=== PATIENT | female | born 1960 | race Hispanic/Latino ===

== ENCOUNTER → 2017-09-15 | Day surgery (SDC) | payer MEDICARE ==
[2017-09-15] VITALS (12 sets, daily range): BP systolic 151–171; BP diastolic 65–82
[~2017-09-15] VITALS: Ht 152.4 cm; Wt 59.0 kg
[~2017-09-15] MED LIST: ACETAMINOPHEN325 M1 PO; ALENDRONATE SOD70 MG; ALENDRONATE SOD70 MG PEG; ARANESP40 MCG/1 M IV; ASPIRIN81 MG PO; ATORVASTATIN CA10 MG PO; BENZOCAINE 20% SPR 60 ML CAN ONE; BUSPIRONE HCL5 MG PO; CALCIUM ACETAT667 M1 PO; CEFAZOLIN1 GM/50 ML IVP; CLONIDINE HCL0.2 MG; COLACE100 MG PO; DOCUSATE SODIU100 MG PO; DRISDOL50000 UNIT PEG; GABAPENTIN400 MG PO; ISOSORBIDE MONO20 MG PO; KEFLEX250 MG PO; LEVEMIR100 UNIT/1 SQ; LEVOTHYROXINE50 MCG PO; LIDOCAINE HCL 2% LOCAL INJ 5 ML SDV VIAL INJ ONE; LISINOPRIL10 MG PO; MECLIZINE HCL12.5 MG PO; METOPROLOL SUCC50 MG PO; NEXIUM20 MG; NIFEDIPINE ER60 M1 PO; NOVOLOG100 UNIT/1 SQ; PANTOPRAZOLE SO40 MG PO; PAXIL20 MG; PLAVIX75 MG PO; POLYETHYLENE GL17 GM PO; PROPOFOL IV EMULSION 10 MG/ML 20 ML VIAL ONE; RENVELA0.8 GM; RENVELA0.8 GM PO; RISPERIDONE0.5 MG PO; SENSIPAR30 MG PO; SIMVASTATIN20 MG PO; SODIUM CHLORIDE 0.9% 1000ML 1,000 ML ONE; VELTASSA PO; [UNRECOGNIZED DRUG - CODE] PO
== END | disposition home or self-care (01) ==
LOC: OR 13:52
PROVIDERS: ATTEND Internal Medicine
DX: R78.81 Bacteremia (principal); B95.8 Unspecified staphylococcus as the cause of diseases classified elsewhere; E11.22 Type 2 diabetes mellitus with diabetic chronic kidney disease; I12.0 Hypertensive chronic kidney disease with stage 5 chronic kidney disease or end stage renal disease; N18.6 End stage renal disease; I11.9 Hypertensive heart disease without heart failure; Z86.73 Personal history of transient ischemic attack (TIA), and cerebral infarction without residual deficits
CPT/HCPCS: 93312; 93320; 93325; J2001; J7030; 93307

== ENCOUNTER 2021-05-29 14:37 | Inpatient (IN) | payer MEDICARE ==
[~2021-05-29] VITALS: Ht 157.5 cm; Wt 59.0 kg
[~2021-05-29 14:37] MED LIST changes: -BENZOCAINE 20% SPR 60 ML CAN ONE; -LIDOCAINE HCL 2% LOCAL INJ 5 ML SDV VIAL INJ ONE; -PROPOFOL IV EMULSION 10 MG/ML 20 ML VIAL ONE; -SODIUM CHLORIDE 0.9% 1000ML 1,000 ML ONE
[2021-05-29 15:19] LABS: BASOPHILS % 0.2 % (0.0-1.0); HEMATOCRIT 33.7 % (34.2-44.1); HEMOGLOBIN 10.2 g/dL (12.0-16.0); LYMPHOCYTES # (AUTO) 0.5 (1.0-3.2); LYMPHOCYTES % 3.5 % (18.0-39.1); MEAN CORPUSCULAR HEMOGLOBIN 29.7 pg (28-32); MEAN CORPUSCULAR HGB CONC 30.3 g/dL (31-35); MEAN CORPUSCULAR VOLUME 98.3 fL (81-99); MONOCYTES # (AUTO) 0.5 (0.2-0.8); MONOCYTES % 3.7 % (4.4-11.3); NEUTROPHILS # (AUTO) 12.6 (2.1-6.9); NEUTROPHILS % 91.9 % (38.7-80.0); PLATELET COUNT 93 x10e3/uL (140-360); RED BLOOD COUNT 3.43 x10e6/uL (3.6-5.1)
[2021-05-29 15:36] LABS: INR 1.47
[2021-05-29 15:37] LABS: PARTIAL THROMBOPLASTIN TIME 26.3 seconds (23.8-35.5)
[2021-05-29 15:45] LABS: ALBUMIN 2.8 g/dL (3.5-5.0); ALBUMIN/GLOBULIN RATIO 0.6 (0.8-2.0); ANION GAP 23.3 mmol/L (8-16); CREATININE, SERUM 5.95 mg/dL (0.57-1.11); POTASSIUM 4.3 mmol/L (3.5-5.1)
[2021-05-29 15:52] LABS: CREATINE KINASE MB 0.9 ng/mL (0-5.0)
[2021-05-29] MEDS ORDERED: INSULIN REGULAR, HUMAN 100 UNIT/1 ML SQ ONE (16:00)
[2021-05-29 18:05] LABS: LYMPHOCYTES % (MANUAL) 1 % (19-48); METAMYELOCYTES % (MANUAL) 2 % (0-0); NEUTROPHILS % (MANUAL) 97 % (40-74)
[2021-05-29] MEDS ORDERED: PIPERACILLIN/TAZOBACTAM 4.5 GM in SODIUM CHLORIDE 0.9% 100 ML IV ONE (18:30)
[2021-05-29] MEDS ORDERED: ACETAMINOPHEN 325 MG TAB PO PRN (18:30)
[2021-05-30] VITALS (8 sets, daily range): BP systolic 117–138; BP diastolic 50–59
[2021-05-30] MEDS ORDERED: HYDRALAZINE HCL 20 MG/ML VIAL IV PRN (01:45)
[2021-05-30] MEDS ORDERED: DOCUSATE SODIUM 100 MG CAP PO PRN (01:45)
[2021-05-30] MEDS ORDERED: DEXTROSE 50% SYRINGE 50 ML IV PRN (01:45)
[2021-05-30] MEDS ORDERED: ONDANSETRON HCL INJ 2MG/ML 2ML 2 MG/ML VIAL IV PRN (01:45)
[2021-05-30] MEDS ORDERED: ACETAMINOPHEN 325 MG TAB PO PRN (01:45)
[2021-05-30 01:53] LABS: % IRON SATURATION 6 % (15-50); IRON 11 ug/dL (50-170); TOTAL IRON BINDING CAPACITY 189 ug/dL (261-478); TRANSFERRIN 135 mg/dL (180-382)
[2021-05-30] MEDS ORDERED: Vancomycin IV 1 GM VIAL ONE (03:23)
[2021-05-30] MEDS ORDERED: SODIUM CHLORIDE 0.9% 250ML 250 ML ONE ×2 (03:23→21:27)
[2021-05-30] MEDS: LEVOTHYROXINE SODIUM 50 MCG TAB PO SCH (07:30)
[2021-05-30] MEDS: PANTOPRAZOLE SOD 40 MG TABEC PO SCH (07:30)
[2021-05-30] MEDS: INSULIN REGULAR, HUMAN 100 UNIT/1 ML SQ SCH ×4 (07:30→21:00)
[2021-05-30] MEDS: SEVELAMER CARBONATE 800 MG TAB PO SCH ×3 (08:00→17:00)
[2021-05-30] MEDS: DOCUSATE SODIUM 100 MG CAP PO SCH ×2 (09:00→17:00)
[2021-05-30] MEDS: CLOPIDOGREL BISULFATE 75 MG TAB PO SCH (09:00)
[2021-05-30] MEDS: CALCIUM ACETATE 667 MG GELCAP PO SCH (09:00)
[2021-05-30] MEDS: ASPIRIN 81 MG CHEW TAB PO SCH (09:00)
[2021-05-30] MEDS: CINACALCET 30 MG TAB PO SCH (09:00)
[2021-05-30] MEDS: SODIUM BICARBONATE 650 MG TAB PO SCH ×2 (09:00→17:00)
[2021-05-30] MEDS: GABAPENTIN 400 MG CAP PO SCH ×3 (09:00→21:21)
[2021-05-30 09:05] LABS: ALBUMIN 2.4 g/dL (3.5-5.0); ALBUMIN/GLOBULIN RATIO 0.5 (0.8-2.0); ANION GAP 21.9 mmol/L (8-16); CALCIUM 7.8 mg/dL (8.4-10.2); CREATININE, SERUM 7.13 mg/dL (0.57-1.11); POTASSIUM 3.9 mmol/L (3.5-5.1)
[2021-05-30 09:11] LABS: INR 1.41; PARTIAL THROMBOPLASTIN TIME 25.1 seconds (23.8-35.5); PROTHROMBIN TIME 18.4 seconds (11.9-14.5)
[2021-05-30 09:55] LABS: BASOPHILS # (AUTO) 0.1 (0.0-0.1); BASOPHILS % 0.5 % (0.0-1.0); EOSINOPHILS # (AUTO) 0.1 (0.0-0.4); EOSINOPHILS % 0.5 % (0.0-6.0); HEMATOCRIT 35.6 % (34.2-44.1); HEMOGLOBIN 11.2 g/dL (12.0-16.0); LYMPHOCYTES # (AUTO) 0.5 (1.0-3.2); LYMPHOCYTES % 3.9 % (18.0-39.1); MEAN CORPUSCULAR HEMOGLOBIN 29.9 pg (28-32); MEAN CORPUSCULAR HGB CONC 31.5 g/dL (31-35); MONOCYTES # (AUTO) 0.7 (0.2-0.8); NEUTROPHILS # (AUTO) 11.6 (2.1-6.9); NEUTROPHILS % 89.6 % (38.7-80.0); RED BLOOD COUNT 3.74 x10e6/uL (3.6-5.1); RED CELL DISTRIBUTION WIDTH 15.9 % (11.7-14.4)
[2021-05-30 10:03] LABS: MEAN CORPUSCULAR VOLUME 95.2 fL (81-99); PLATELET COUNT 85 x10e3/uL (140-360)
[2021-05-30] MEDS ORDERED: Morphine 4mg Syringe 4 MG/ML INJ IV ONE (12:30)
[2021-05-30] MEDS: PIPERACILLIN/TAZOBACTAM 2.25 GM in SODIUM CHLORIDE 0.9% 50ML 50 ML IV SCH ×2 (14:20→21:21)
[2021-05-30] MEDS ORDERED: Vancomycin IV 1 GM in SODIUM CHLORIDE 0.9% 250ML 250 ML IV SCH (17:00)
[2021-05-30] MEDS: ATORVASTATIN 10 MG TAB PO SCH (21:21)
[2021-05-31] VITALS (8 sets, daily range): BP systolic 100–134; BP diastolic 44–62
[2021-05-31 01:15] LABS: ALBUMIN 2.4 g/dL (3.5-5.0); BILIRUBIN,DIRECT 0.5 mg/dL (0.0-0.5)
[2021-05-31 01:34] LABS: BASOPHILS % 0.2 % (0.0-1.0); EOSINOPHILS % 0.3 % (0.0-6.0); HEMATOCRIT 33.9 % (34.2-44.1); HEMOGLOBIN 10.4 g/dL (12.0-16.0); LYMPHOCYTES # (AUTO) 0.5 (1.0-3.2); LYMPHOCYTES % 4.2 % (18.0-39.1); MEAN CORPUSCULAR HEMOGLOBIN 29.4 pg (28-32); MEAN CORPUSCULAR HGB CONC 30.7 g/dL (31-35); MEAN CORPUSCULAR VOLUME 95.8 fL (81-99); MONOCYTES # (AUTO) 0.6 (0.2-0.8); MONOCYTES % 4.9 % (4.4-11.3); NEUTROPHILS # (AUTO) 10.8 (2.1-6.9); NEUTROPHILS % 89.9 % (38.7-80.0); PLATELET COUNT 77 x10e3/uL (140-360); RED BLOOD COUNT 3.54 x10e6/uL (3.6-5.1); RED CELL DISTRIBUTION WIDTH 16.2 % (11.7-14.4)
[2021-05-31 05:32] LABS: BASOPHILS % 0.4 % (0.0-1.0); EOSINOPHILS % 0.3 % (0.0-6.0); HEMATOCRIT 36.7 % (34.2-44.1); HEMOGLOBIN 11.4 g/dL (12.0-16.0); LYMPHOCYTES # (AUTO) 0.5 (1.0-3.2); LYMPHOCYTES % 4.2 % (18.0-39.1); MEAN CORPUSCULAR HEMOGLOBIN 29.9 pg (28-32); MEAN CORPUSCULAR HGB CONC 31.1 g/dL (31-35); MEAN CORPUSCULAR VOLUME 96.3 fL (81-99); MONOCYTES # (AUTO) 0.5 (0.2-0.8); MONOCYTES % 4.8 % (4.4-11.3); NEUTROPHILS # (AUTO) 9.8 (2.1-6.9); NEUTROPHILS % 89.7 % (38.7-80.0); PLATELET COUNT 84 x10e3/uL (140-360); RED BLOOD COUNT 3.81 x10e6/uL (3.6-5.1); RED CELL DISTRIBUTION WIDTH 16.3 % (11.7-14.4)
[2021-05-31] MEDS: LEVOTHYROXINE SODIUM 50 MCG TAB PO SCH (05:58)
[2021-05-31] MEDS: PANTOPRAZOLE SOD 40 MG TABEC PO SCH (05:58)
[2021-05-31 06:04] LABS: ALBUMIN 2.2 g/dL (3.5-5.0); ALBUMIN/GLOBULIN RATIO 0.5 (0.8-2.0); ANION GAP 18.7 mmol/L (8-16); CALCIUM 7.9 mg/dL (8.4-10.2); CREATININE, SERUM 8.08 mg/dL (0.57-1.11); MAGNESIUM 2.2 MG/DL (1.3-2.1); POTASSIUM 3.7 mmol/L (3.5-5.1)
[2021-05-31] MEDS: INSULIN REGULAR, HUMAN 100 UNIT/1 ML SQ SCH ×5 (07:30→21:00)
[2021-05-31] MEDS: SEVELAMER CARBONATE 800 MG TAB PO SCH ×3 (08:00→17:00)
[2021-05-31] MEDS ORDERED: SODIUM CHLORIDE 0.9% 1000ML 1,000 ML ONE (08:48)
[2021-05-31] MEDS: ASPIRIN 81 MG CHEW TAB PO SCH (09:00)
[2021-05-31] MEDS: SODIUM BICARBONATE 650 MG TAB PO SCH ×2 (09:00→17:00)
[2021-05-31] MEDS: CLOPIDOGREL BISULFATE 75 MG TAB PO SCH (09:00)
[2021-05-31] MEDS: GABAPENTIN 400 MG CAP PO SCH (09:00)
[2021-05-31] MEDS: CALCIUM ACETATE 667 MG GELCAP PO SCH (09:00)
[2021-05-31] MEDS: CINACALCET 30 MG TAB PO SCH (09:00)
[2021-05-31] MEDS: DOCUSATE SODIUM 100 MG CAP PO SCH ×2 (09:00→17:00)
[2021-05-31] MEDS: PIPERACILLIN/TAZOBACTAM 2.25 GM in SODIUM CHLORIDE 0.9% 50ML 50 ML IV SCH ×2 (10:57→23:34)
[2021-05-31] MEDS: IRON SUCROSE 100 MG in SODIUM CHLORIDE 0.9% 100 ML 100 ML IV SCH (17:40)
[2021-05-31] MEDS ORDERED: LIDOCAINE HCL 1% LOCAL INJ 20 ML VIAL ONE (18:30)
[2021-05-31] MEDS ORDERED: SODIUM CHLORIDE 0.9% 250ML 250 ML ONE (19:06)
[2021-05-31] MEDS ORDERED: SODIUM CHLORIDE 0.9% 1000ML 2,000 ML ONE (20:15)
[2021-05-31] MEDS: ATORVASTATIN 10 MG TAB PO SCH (21:00)
[2021-05-31] MEDS: HEPARIN SOD (PORCINE) 5,000 UNIT/ML VIAL SC SCH (23:34)
[2021-06-01] VITALS (8 sets, daily range): BP systolic 101–137; BP diastolic 54–91
[2021-06-01 05:50] LABS: BASOPHILS % 0.5 % (0.0-1.0); EOSINOPHILS # (AUTO) 0.1 (0.0-0.4); EOSINOPHILS % 0.7 % (0.0-6.0); HEMATOCRIT 33.5 % (34.2-44.1); LYMPHOCYTES # (AUTO) 0.7 (1.0-3.2); LYMPHOCYTES % 7.5 % (18.0-39.1); MEAN CORPUSCULAR HEMOGLOBIN 28.8 pg (28-32); MEAN CORPUSCULAR HGB CONC 29.9 g/dL (31-35); MEAN CORPUSCULAR VOLUME 96.5 fL (81-99); MONOCYTES # (AUTO) 0.7 (0.2-0.8); MONOCYTES % 7.5 % (4.4-11.3); NEUTROPHILS # (AUTO) 7.4 (2.1-6.9); NEUTROPHILS % 82.9 % (38.7-80.0); PLATELET COUNT 84 x10e3/uL (140-360); RED BLOOD COUNT 3.47 x10e6/uL (3.6-5.1); RED CELL DISTRIBUTION WIDTH 16.4 % (11.7-14.4)
[2021-06-01 06:09] LABS: ALBUMIN 2.2 g/dL (3.5-5.0); ALBUMIN/GLOBULIN RATIO 0.5 (0.8-2.0); ANION GAP 22.7 mmol/L (8-16); CALCIUM 8.5 mg/dL (8.4-10.2); CREATININE, SERUM 5.29 mg/dL (0.57-1.11); MAGNESIUM 2.2 MG/DL (1.3-2.1); POTASSIUM 3.7 mmol/L (3.5-5.1)
[2021-06-01] MEDS: LEVOTHYROXINE SODIUM 50 MCG TAB PO SCH (08:30)
[2021-06-01] MEDS: PANTOPRAZOLE SOD 40 MG TABEC PO SCH (08:30)
[2021-06-01] MEDS: INSULIN REGULAR, HUMAN 100 UNIT/1 ML SQ SCH ×4 (08:30→21:24)
[2021-06-01] MEDS: SEVELAMER CARBONATE 800 MG TAB PO SCH ×3 (09:00→17:00)
[2021-06-01] MEDS: DOCUSATE SODIUM 100 MG CAP PO SCH ×2 (09:08→17:00)
[2021-06-01] MEDS: SODIUM BICARBONATE 650 MG TAB PO SCH ×2 (09:08→17:00)
[2021-06-01] MEDS: CLOPIDOGREL BISULFATE 75 MG TAB PO SCH (09:08)
[2021-06-01] MEDS: ASPIRIN 81 MG CHEW TAB PO SCH (09:08)
[2021-06-01] MEDS: PIPERACILLIN/TAZOBACTAM 2.25 GM in SODIUM CHLORIDE 0.9% 50ML 50 ML IV SCH ×2 (09:09→21:24)
[2021-06-01] MEDS: CINACALCET 30 MG TAB PO SCH (09:09)
[2021-06-01] MEDS: IRON SUCROSE 100 MG in SODIUM CHLORIDE 0.9% 100 ML 100 ML IV SCH (09:11)
[2021-06-01] MEDS: HEPARIN SOD (PORCINE) 5,000 UNIT/ML VIAL SC SCH ×2 (09:30→21:24)
[2021-06-01] MEDS: ATORVASTATIN 10 MG TAB PO SCH (21:36)
[2021-06-02] VITALS (8 sets, daily range): BP systolic 122–146; BP diastolic 46–96
[2021-06-02] MEDS: INSULIN REGULAR, HUMAN 100 UNIT/1 ML SQ SCH ×4 (08:15→21:18)
[2021-06-02] MEDS: LEVOTHYROXINE SODIUM 50 MCG TAB PO SCH (08:30)
[2021-06-02] MEDS: PANTOPRAZOLE SOD 40 MG TABEC PO SCH (08:30)
[2021-06-02] MEDS: SEVELAMER CARBONATE 800 MG TAB PO SCH ×3 (08:53→17:14)
[2021-06-02] MEDS ORDERED: ERGOCALCIFEROL 50,000 UNIT CAP PO SCH (09:00)
[2021-06-02] MEDS: DOCUSATE SODIUM 100 MG CAP PO SCH (09:00)
[2021-06-02] MEDS: HEPARIN SOD (PORCINE) 5,000 UNIT/ML VIAL SC SCH ×2 (09:15→21:00)
[2021-06-02] MEDS: PIPERACILLIN/TAZOBACTAM 2.25 GM in SODIUM CHLORIDE 0.9% 50ML 50 ML IV SCH (09:32)
[2021-06-02] MEDS: ASPIRIN 81 MG CHEW TAB PO SCH (09:32)
[2021-06-02] MEDS: CINACALCET 30 MG TAB PO SCH (09:33)
[2021-06-02] MEDS: SODIUM BICARBONATE 650 MG TAB PO SCH ×2 (09:33→17:14)
[2021-06-02] MEDS: CLOPIDOGREL BISULFATE 75 MG TAB PO SCH (09:34)
[2021-06-02] MEDS: IRON SUCROSE 100 MG in SODIUM CHLORIDE 0.9% 100 ML 100 ML IV SCH (09:43)
[2021-06-02] MEDS: PIPERACILLIN/TAZOBACTAM 3.375 GM in SODIUM CHLORIDE 0.9% 50ML 50 ML IV SCH (15:07)
[2021-06-02] MEDS: ATORVASTATIN 10 MG TAB PO SCH (21:00)
[2021-06-03] VITALS: BP 123/69
[2021-06-03 04:00] VITALS: BP 161/84
[2021-06-03] MEDS: PIPERACILLIN/TAZOBACTAM 3.375 GM in SODIUM CHLORIDE 0.9% 50ML 50 ML IV SCH ×2 (05:04→17:28)
[2021-06-03 05:39] LABS: BASOPHILS % 0.6 % (0.0-1.0); EOSINOPHILS # (AUTO) 0.2 (0.0-0.4); EOSINOPHILS % 3.1 % (0.0-6.0); HEMATOCRIT 33.7 % (34.2-44.1); HEMOGLOBIN 10.1 g/dL (12.0-16.0); LYMPHOCYTES # (AUTO) 1.2 (1.0-3.2); LYMPHOCYTES % 18.5 % (18.0-39.1); MEAN CORPUSCULAR HEMOGLOBIN 28.9 pg (28-32); MEAN CORPUSCULAR VOLUME 96.3 fL (81-99); MONOCYTES # (AUTO) 0.6 (0.2-0.8); NEUTROPHILS # (AUTO) 4.2 (2.1-6.9); NEUTROPHILS % 66.5 % (38.7-80.0); PLATELET COUNT 126 x10e3/uL (140-360); RED CELL DISTRIBUTION WIDTH 16.5 % (11.7-14.4)
[2021-06-03 06:20] LABS: ALBUMIN/GLOBULIN RATIO 0.4 (0.8-2.0); ANION GAP 21.6 mmol/L (8-16); CALCIUM 8.1 mg/dL (8.4-10.2); CREATININE, SERUM 7.53 mg/dL (0.57-1.11); POTASSIUM 3.6 mmol/L (3.5-5.1)
[2021-06-03] MEDS: LEVOTHYROXINE SODIUM 50 MCG TAB PO SCH (07:30)
[2021-06-03] MEDS: PANTOPRAZOLE SOD 40 MG TABEC PO SCH (07:30)
[2021-06-03] MEDS ORDERED: SODIUM CHLORIDE 0.9% 1000ML 1,000 ML ONE (07:48)
[2021-06-03] MEDS: SEVELAMER CARBONATE 800 MG TAB PO SCH ×3 (08:00→17:00)
[2021-06-03] MEDS: INSULIN REGULAR, HUMAN 100 UNIT/1 ML SQ SCH ×4 (08:30→21:00)
[2021-06-03] MEDS: HEPARIN SOD (PORCINE) 5,000 UNIT/ML VIAL SC SCH ×2 (09:00→21:00)
[2021-06-03] MEDS: SODIUM BICARBONATE 650 MG TAB PO SCH ×2 (09:00→17:00)
[2021-06-03] MEDS: CINACALCET 30 MG TAB PO SCH (09:00)
[2021-06-03] MEDS: ASPIRIN 81 MG CHEW TAB PO SCH (09:00)
[2021-06-03] MEDS: IRON SUCROSE 100 MG in SODIUM CHLORIDE 0.9% 100 ML 100 ML IV SCH (09:00)
[2021-06-03] MEDS ORDERED: SODIUM CHLORIDE 0.9% 1000ML 2,000 ML IV PRN (10:00)
[2021-06-03] MEDS ORDERED: HEPARIN SOD (PORCINE) 1000 UNIT/ML SDV IV PRN (10:00)
[2021-06-03 15:15] VITALS: BP 149/67
[2021-06-03] MEDS ORDERED: Vancomycin IV 1 GM in SODIUM CHLORIDE 0.9% 250ML 250 ML IV SCH (17:00)
[2021-06-03 20:00] VITALS: BP 143/58
[2021-06-03] MEDS: ATORVASTATIN 10 MG TAB PO SCH (23:15)
[2021-06-04] VITALS (11 sets, daily range): BP systolic 94–166; BP diastolic 50–75
[2021-06-04] MEDS: PIPERACILLIN/TAZOBACTAM 3.375 GM in SODIUM CHLORIDE 0.9% 50ML 50 ML IV SCH ×2 (06:16→17:47)
[2021-06-04] MEDS: INSULIN REGULAR, HUMAN 100 UNIT/1 ML SQ SCH ×4 (07:30→21:30)
[2021-06-04] MEDS: LEVOTHYROXINE SODIUM 50 MCG TAB PO SCH (07:30)
[2021-06-04] MEDS: PANTOPRAZOLE SOD 40 MG TABEC PO SCH (07:30)
[2021-06-04] MEDS: SEVELAMER CARBONATE 800 MG TAB PO SCH ×3 (08:00→17:42)
[2021-06-04] MEDS: HEPARIN SOD (PORCINE) 5,000 UNIT/ML VIAL SC SCH ×2 (09:00→21:30)
[2021-06-04] MEDS: SODIUM BICARBONATE 650 MG TAB PO SCH ×2 (09:00→17:42)
[2021-06-04] MEDS: CINACALCET 30 MG TAB PO SCH (09:00)
[2021-06-04] MEDS: ASPIRIN 81 MG CHEW TAB PO SCH (09:00)
[2021-06-04] MEDS: IRON SUCROSE 100 MG in SODIUM CHLORIDE 0.9% 100 ML 100 ML IV SCH (09:11)
[2021-06-04] MEDS ORDERED: SODIUM CHLORIDE 0.9% 1000ML 1,000 ML ONE (09:59)
[2021-06-04] MEDS ORDERED: BENZOCAINE 20% SPR 60 ML CAN ONE (09:59)
[2021-06-04] MEDS ORDERED: FENTANYL CITRATE/PF 100MCG/2 ML INJ ONE (12:37)
[2021-06-04] MEDS ORDERED: MIDAZOLAM HCL 2 MG/2 ML VIAL ONE (12:37)
[2021-06-04] MEDS ORDERED: PROPOFOL IV EMULSION 10 MG/ML 20 ML VIAL ONE (19:35)
[2021-06-04] MEDS ORDERED: LIDOCAINE HCL 2% LOCAL INJ 5 ML SDV VIAL INJ ONE (19:35)
[2021-06-04] MEDS ORDERED: POVIDONE IODINE 0.05% 0.05 % ML PO ONE (19:35)
[2021-06-04] MEDS: ATORVASTATIN 10 MG TAB PO SCH (21:30)
[2021-06-05] VITALS (7 sets, daily range): BP systolic 133–167; BP diastolic 50–67
[2021-06-05] MEDS: PIPERACILLIN/TAZOBACTAM 3.375 GM in SODIUM CHLORIDE 0.9% 50ML 50 ML IV SCH ×2 (05:30→18:00)
[2021-06-05 06:29] LABS: CHOL/HDL RATIO 5.4 (3.0-3.6)
[2021-06-05] MEDS: PANTOPRAZOLE SOD 40 MG TABEC PO SCH (07:30)
[2021-06-05] MEDS: LEVOTHYROXINE SODIUM 50 MCG TAB PO SCH (07:30)
[2021-06-05] MEDS: INSULIN REGULAR, HUMAN 100 UNIT/1 ML SQ SCH ×4 (07:30→20:30)
[2021-06-05] MEDS: SEVELAMER CARBONATE 800 MG TAB PO SCH ×3 (08:00→17:17)
[2021-06-05] MEDS: CINACALCET 30 MG TAB PO SCH (08:29)
[2021-06-05] MEDS: ASPIRIN 81 MG CHEW TAB PO SCH (08:29)
[2021-06-05] MEDS: SODIUM BICARBONATE 650 MG TAB PO SCH ×2 (08:29→17:17)
[2021-06-05] MEDS: HEPARIN SOD (PORCINE) 5,000 UNIT/ML VIAL SC SCH (09:00)
[2021-06-05] MEDS: IRON SUCROSE 100 MG in SODIUM CHLORIDE 0.9% 100 ML 100 ML IV SCH (11:57)
[2021-06-05] MEDS ORDERED: SODIUM CHLORIDE 0.9% 250ML 250 ML ONE (14:01)
[2021-06-05] MEDS ORDERED: LIDOCAINE HCL 1% LOCAL INJ 20 ML VIAL ONE (14:01)
[2021-06-05] MEDS ORDERED: MIDAZOLAM HCL 2 MG/2 ML VIAL ONE (14:28)
[2021-06-05] MEDS ORDERED: FENTANYL CITRATE/PF 100MCG/2 ML INJ ONE (14:28)
[2021-06-05] MEDS ORDERED: HEPARIN SOD (PORCINE) 1000 UNIT/ML SDV ONE (14:34)
[2021-06-05] MEDS ORDERED: SODIUM THIOSULFATE 25 GM in SODIUM CHLORIDE 0.9% 100 ML 100 ML IV SCH (15:00)
[2021-06-05] MEDS ORDERED: COLACE100 MG PO (18:04)
[2021-06-05] MEDS ORDERED: TOPROL XL25 MG PO (18:04)
[2021-06-05] MEDS ORDERED: SODIUM BICARBO650 MG PO (18:04)
[2021-06-06] MEDS ORDERED: METOPROLOL SUCCINATE 25 MG TAB XL PO SCH (09:00)
== END 2021-06-05 21:15 | disposition home or self-care (01) | DRG 871 ==
LOC: ER 14:49 → ERHOLD 22:37 → IMCU 05-30 07:30 → MED/SURG 05-30 18:01
PROVIDERS: ADMIT Internal Medicine; ATTEND Internal Medicine
PROC: 5A1D70Z Performance of Urinary Filtration, Intermittent, Less than 6 Hours Per Day (ICD-10-PCS; principal; 2021-05-31)
PROC: 02HV33Z Insertion of Infusion Device into Superior Vena Cava, Percutaneous Approach (ICD-10-PCS; 2021-05-31)
PROC: 0JH63XZ Insertion of Tunneled Vascular Access Device into Chest Subcutaneous Tissue and Fascia, Percutaneous Approach (ICD-10-PCS; 2021-06-05)
PROC: 02HV33Z Insertion of Infusion Device into Superior Vena Cava, Percutaneous Approach (ICD-10-PCS; 2021-06-05)
DX: A41.01 Sepsis due to Methicillin susceptible Staphylococcus aureus (principal); N18.6 End stage renal disease; D68.9 Coagulation defect, unspecified; T82.590A Other mechanical complication of surgically created arteriovenous fistula, initial encounter; E87.2 Acidosis; I13.2 Hypertensive heart and chronic kidney disease with heart failure and with stage 5 chronic kidney disease, or end stage renal disease; I50.22 Chronic systolic (congestive) heart failure; E11.65 Type 2 diabetes mellitus with hyperglycemia; F41.9 Anxiety disorder, unspecified; F32.A Depression, unspecified; E11.22 Type 2 diabetes mellitus with diabetic chronic kidney disease; E11.40 Type 2 diabetes mellitus with diabetic neuropathy, unspecified; E11.319 Type 2 diabetes mellitus with unspecified diabetic retinopathy without macular edema; Z79.899 Other long term (current) drug therapy; K76.9 Liver disease, unspecified; E21.3 Hyperparathyroidism, unspecified; E11.51 Type 2 diabetes mellitus with diabetic peripheral angiopathy without gangrene; E88.09 Other disorders of plasma-protein metabolism, not elsewhere classified; E78.5 Hyperlipidemia, unspecified; Z99.2 Dependence on renal dialysis; Z86.73 Personal history of transient ischemic attack (TIA), and cerebral infarction without residual deficits; R19.7 Diarrhea, unspecified; G89.29 Other chronic pain; D50.9 Iron deficiency anemia, unspecified; Z20.822 Contact with and (suspected) exposure to COVID-19; E87.5 Hyperkalemia
CPT/HCPCS: 36415; 36556; 36558; 71045; 74150; 74181; 74470; 76705; 76937; 78227; 80053; 80061; 80076; 82140; 82550; 82553; 82607; 82746; 82948; 83540; 83605; 83735; 83880; 84466; 84484; 85025; 85045; 85610; 85730; 86705; 86706; 87040; 87071; 87186; 87205; 87340; 90962; 93005; 93306; 93307; 93312; 93325; 94799; 96372; 97139; 99285; A9537; C1752; C1769; J0360; J0690; J1644; J1756; J1817; J2001; J2250; J2270; J2405; J2543; J3010; J3370; J7030; J7050; U0002